=== PATIENT | male | born 1955 | race Caucasian/White ===

== ENCOUNTER → 2016-10-19 06:29 | Day surgery (SDC) | payer BC ==
--- NOTE | 2016-10-16 14:32 | HP ---
DATE OF ADMISSION: 10/19/2016 [facility] DATE OF HISTORY AND PHYSICAL EXAM: 10/16/2016. CHIEF COMPLAINT: Varicose veins and swelling left leg. HISTORY OF PRESENT ILLNESS: Gregory Andrade is a 61-year-old male who has a long - standing history of varicose vein disease which he has had bulging varicosities for approximately 35 years. He has a history of a DVT of the left lower extremity and was treated with Coumadin therapy for this. He notes symptoms of swelling, pain, and aching. A venous duplex scan was done of the left lower extremity which showed the deep system to be normal. The left greater saphenous vein is dilated and incompetent at 8.7 mm with greater than a 0.5 second reflux. There is also reflux at the saphenofemoral junction, 10.2 mm , with greater than 0.5 second reflux. The short saphenous vein is within normal limits and there are no incompetent perforators. Dr. Coughlin has discussed the nature and course of endoluminal closure and venous reflux disease and has discussed the material risks and relevant alternatives to surgery. These were reviewed with the patient at his preoperative appointment, including but not limited to infection, bleeding, poor healing, recurrence, and DVT. The patient has been given a chance to ask questions. These have been answered. The patient will sign on admission an informed consent for left leg endoluminal closure of the greater saphenous vein with extensive phlebectomies. PAST MEDICAL HISTORY: The patient is in good health. He denied medical problems. His flu shot was 07/12/2016. PAST SURGICAL HISTORY: [place] teeth extraction, vasectomy, colonoscopy. MEDICATIONS: None, but takes a daily 81 mg aspirin. ALLERGIES: None. FAMILY HISTORY: Father ten years ago, carcinoid syndrome; mother is alive and well. He had a grandmother with varicose vein issues. SOCIAL HISTORY: The patient is a teacher. He denied tobacco use. He has two alcohol drinks a day. REVIEW OF SYSTEMS: The patient denied problems with anesthesia. He denied bleeding tendencies, but does take a daily baby aspirin. He has not had any recent exposure to any communicable disease. PHYSICAL EXAMINATION GENERAL: Gregory Andrade is a 61-year-old male, well-developed, well-nourished, in no acute distress. VITAL SIGNS: Blood pressure 139/93, pulse 71. Height 5'10", weight 195. HEENT: Within normal limits. Teeth are in good repair. Pharynx clear. EOM's intact. Pupils equal, round and reactive to light accommodation. NECK: Supple. Full range of motion. Thyroid nonpalpable. No cervical adenopathy. SPINE: Normal curvature. No spine or CVA tenderness. CHEST: Lungs clear. HEART: S1, S2, regular rate and rhythm. No extra heart sounds, murmurs, clicks or rubs. ABDOMEN: Soft, nontender. Positive bowel sounds. Positive tympany. No masses or organomegaly. EXTREMITIES: +2 symmetrical radial pulses. NEUROLOGIC: Alert and oriented times three. The rest of the exam was grossly intact. LOCAL EXAM: Shows bulging varicosities and 1 to 2 cm diameter, originating in the anterior thigh, extending over the medial thigh and to the ankle region. The left leg is noted significantly larger than the right leg. He has 1+ ankle edema and early skin changes. IMPRESSION/PLAN: Superficial venous reflux disease secondary to an incompetent left greater saphenous vein and the plan is Same Day Surgery admission to Dr. Benavides's services for left leg endoluminal closure of the greater saphenous vein and [place] [id number]/[facility] [place] #: [id number] NAE
[~2016-10-19 06:29] MED LIST: Buffered Lidocaine 1% SYR 3ML* 3 ML/SYR SYRINGE INTRADERM ONE; Buffered Lidocaine 1% SYR 3ML* 3 ML/SYR SYRINGE ONE; EPINEPHrine AMP 1 MG/ML ONE; Enoxaparin(*) 30 MG/0.3 ML SYR ONE; KETAMINE HCL* 50 MG/ML 10 ML VIAL ONE; Lidocaine 1% MPF* 2 ML VIAL ONE; Lidocaine 2% PF* 10 ML AMP ONE; Midazolam* 1 MG/ML 2 ML VIAL (2 MG) ONE; Midazolam* 1 MG/ML 5 ML VIAL (5 MG) ONE; POLIDOCANOL IV ONE; Propofol* 10 MG/ML 20 ML BTL IV PUSH ONE; Sodium Bicarbonate 8.4% SYR* 10 ML SYRINGE ONE; fentaNYL* 50 MCG/ML 2 ML VIAL (100 MCG VIAL) ONE
[2016-10-19 09:11] VITALS: BP 123/73
--- NOTE | 2016-10-20 02:46 | OP ---
DATE OF OPERATION: 10/19/16 - [facility] DATE OF : 59 SURGEON: Lino Benavides MD COIN BOX INSPECTOR: Dianna Valle NP ANESTHESIOLOGIST: Gee Jeronimo MD ANESTHESIA: Local plus MAC. PRE-OP DIAGNOSIS: Superficial venous reflux disease, left lower extremity secondary to an incompetent left greater saphenous vein. POST-OP DIAGNOSIS: Superficial venous reflux disease, left lower extremity secondary to an incompetent left greater saphenous vein. OPERATIVE PROCEDURE: 1. Radiofrequency closure, left greater saphenous vein. 2. Microphlebectomies, greater than 10 less than 20 incisions. ESTIMATED BLOOD LOSS: Approximately 20 cc. DESCRIPTION OF PROCEDURE: The patient was taken to the procedure room. He underwent marking of the varicosities and ultrasound mapping of the greater saphenous vein. He was then placed in the supine position. He was prepped and draped in the usual sterile fashion. He received preoperative antibiotics and Lovenox for DVT prophylaxis. Under sedation, lidocaine 1% was used to infiltrate on the medial aspect of the left thigh above the knee. A percutaneous cannulation of the greater saphenous vein was done under ultrasound guidance, once the small needle and wire were in place, the needle was exchanged for a 7-Japanese 11 cm long introducer sheath that was advanced over the wire inside the greater saphenous vein, after which the introducer and the wire were removed. The sheath was left in place, which was then back-bled and flushed with saline. We then proceeded to advance the Fast Track radiofrequency catheter inside the greater saphenous vein via the sheath, positioning the tip of the catheter 2 cm below the saphenofemoral junction. We then proceeded to infiltrate tumescent local anesthesia around the greater saphenous vein and the catheter from the entrance point up to the saphenofemoral junction. Once this was completed, the patient was placed in Trendelenburg position. We then proceeded to activate the radiofrequency unit, the first 7 cm were cycled twice and then a single cycle thereafter delivering a total of 5 cycles to the greater saphenous vein. After this was completed, there was evidence of closure in the treated vein; however, the common femoral vein appeared to be compressible without any abnormality. After this was completed, the previously marked varicose veins were then removed by small incision in a stab avulsion technique. Greater than 10 less than 20 incision were performed. After this completed, incisions were closed with 5-0 Prolene and Steri-Strips. A light pressure dressing was applied to the left lower extremity. The patient tolerated the procedure well. He was recovered and taken to recovery room. [id number]/[facility] #: [id number] NAE
== END | disposition home or self-care (01) ==
LOC: OREAST 06:29
PROVIDERS: ATTEND Surgery
DX: I83.892 Varicose veins of left lower extremity with other complications (principal); Z86.718 Personal history of other venous thrombosis and embolism
CPT/HCPCS: 88300; J0171; J1650; J2001; J2250; J2704; J3010